=== PATIENT | female | born 1965 | race Caucasian/White ===

== ENCOUNTER 2019-12-10 06:59 | Day surgery (SDC) | payer OTHER ==
[2019-11-25 10:29] VITALS: BMI 31.4
[~2019-12-10 06:59] MED LIST: LACTATED RINGERS 1,000 ML IV SCH; LIDOCAINE 1% 20 ML VIAL (10MG/ML) FOR IV START INTRADERMA PRN
[2019-12-10 07:31] VITALS: RESP 16; TEMP 98.3
[2019-12-10] MEDS ORDERED: PROPOFOL 10 MG/ML 20 ML VIAL IV ONE (07:32)
[2019-12-10] MEDS ORDERED: fentaNYL (PF) 50 MCG/ML 2 ML AMP ONE (07:32)
[2019-12-10] MEDS ORDERED: LIDOCAINE 1% INJ 10MG/ML (20 ML MDV) ONE (07:32)
[2019-12-10] MEDS ORDERED: MIDAZOLAM 2 MG/2 ML VIAL ONE (07:32)
--- NOTE | 2019-12-10 08:52 | P.PCN ---
Date of Procedure: 12/10/19 Description of Procedure: Brief history: Patient is a pleasant 54-year-old female who presents for outpatient EGD and colonoscopy for evaluation of GERD rectal bleed. Patient previously had presented with complaints of painful rectal bleeding in 2017 at which time EGD and colonoscopy were performed with findings of a small hiatal hernia, no ulcers with gastritis noted and colonoscopy significant for diverticulosis no polyps. She had a suspected second episode of ischemic colitis. Procedure performed: Esophagogastroduodenoscopy with biopsy Colonoscopy Preoperative diagnosis: GERD, rectal bleeding Anesthesia: [facility] Procedure: After informed consent was obtained from the patient was brought into the endoscopy unit and IV sedation was administered by anesthesia under continuous monitoring. Initially upper endoscopy was done. The Olympus GF 190 video endoscope was inserted into the mouth and esophagus intubated without any difficulty and was gradually advanced into the stomach and duodenum and carefully examined. The bulb and second part of the duodenum appeared normal, with biopsies taken. The scope was then withdrawn into the stomach adequately insufflated with air and upon careful examination the antrum and body, cardia and fundus appeared normal, Except for some mild scattered erythema in the antrum and body suggestive of mild gastritis with biopsies taken. The scope was then withdrawn into the esophagus. The GE junction was located at 48 cm to the incisors And appeared normal with no evidence of Landrum's esophagus or esophagitis with biopsies taken. A small 1 cm hiatal hernia noted. It appeared regular with no erythema erosions or ulcerations. Rest of the esophagus appeared normal. Patient tolerated the procedure well. At this time the patient continued to remain sedation. Initial digital rectal examination was normal A pediatric video colonoscope was then inserted into the rectum and gradually advanced to the cecum without any difficulty. Careful examination was performed as the scope was gradually being withdrawn. The prep was excellent. The cecum, ascending colon, transverse colon, descending colon, sigmoid colon and rectum appeared normal. A few scattered diverticula noted in the sigmoid colon. The patient had an extremely fixed, tortuous redundant colon with significant looping of the endoscope requiring repositioning of the patient and external pressure. Retroflexion was performed in the rectum and no lesions were noted. Patient tolerated the procedure well. Impression: 1. Mild gastritis antrum and body, biopsied. No evidence of Landrum's esophagus or reflux esophagitis. Biopsies of the GE junction and duodenum. Small 1 cm hiatal hernia. 2. Mild sigmoid diverticulosis. Redundant tortuous colon requiring use of a pediatric endoscope, external pressure and repositioning of the patient. No e vidence of colitis or other abnormalities. Recommendations: Findings of this examination were discussed with the patient as well as her . Okay to resume diet. Okay to resume medications. Would recommend repeat colonoscopy in 5 years for screening purposes.
[2019-12-10 09:10] VITALS: BP 122/78; PULSE 70
== END 2019-12-10 09:40 ==
LOC: ORWHC2ENDO 06:59
PROVIDERS: ATTEND Internal Medicine
DX: K21.9 Gastro-esophageal reflux disease without esophagitis (principal); K44.9 Diaphragmatic hernia without obstruction or gangrene; K29.50 Unspecified chronic gastritis without bleeding; K57.30 Diverticulosis of large intestine without perforation or abscess without bleeding; K62.5 Hemorrhage of anus and rectum; Q43.8 Other specified congenital malformations of intestine; Z87.891 Personal history of nicotine dependence; E78.5 Hyperlipidemia, unspecified; Z79.899 Other long term (current) drug therapy; Z88.2 Allergy status to sulfonamides; Z98.890 Other specified postprocedural states; Z90.710 Acquired absence of both cervix and uterus
CPT/HCPCS: 88305; 45378; 43239; J2250; J2001; J3010; J2704

== ENCOUNTER → 2022-02-13 | Outpatient (CLI) | payer OTHER ==
--- NOTE | 2022-02-13 22:32 | CT ---
EXAMINATION TYPE: CT angio abdomen pelvis DATE OF EXAM: 02/13/2022 INDICATION: COLITIS ISCHEMIC CT DLP: 1525.9 mGy.cm Automated Exposure Control for Dose Reduction was Utilized. TECHNIQUE AND CONTRAST: CT scan of the abdomen and pelvis is performed without and with IV Contrast, patient injected with 10 0ML mL of Isovue 370. MIP and 3-D reconstruction images were generated on an independent workstation and reviewed. COMPARISON: None available FINDINGS: Scattered arterial atherosclerotic calcification. Focal infrarenal abdominal aortic ectasia measuring up to 2.3 cm. Otherwise normal caliber and enhancement of the abdominal aorta and major abdominal an d pelvic arteries without significant stenosis, occlusion, dissection or aneurysm. Accessory right re nal artery is seen arising from the inferior aspect of abdominal aorta and supplying the lower pole o f right kidney. No definite hepatic focal lesion by this CT angiographic study. Unremarkable gallbladder, spleen, villalobos creas, adrenals and kidneys. Unremarkable urinary bladder. Previous hysterectomy. No gross adnexal ma ss. Unremarkable nondistended stomach, duodenum and small bowel. Fecal loading of the colon. Scattere d uncomplicated colonic diverticulosis. No significant colonic wall thickening or signs of colitis. No pathologically enlarged abdominal or pelvic lymph nodes. No sizable ascites. Fat-containing suprau mbilical hernia. A few right basal pulmonary nodules measuring up to 4 mm, requiring no further follo w-up if low risk patient. If high risk patient, optional follow-up CT scan in 12 months can be consid ered. Bilateral L5-S1 facet osteoarthropathy. Degenerative changes of the sacroiliac joints. IMPRESSION: No significant arterial stenosis, occlusion or dissection seen in the abdomen or the pelvis. No signs of acute or chronic colitis. Incidental findings as described above.
== END | disposition home or self-care (01) ==
LOC: RADCTMAIN 15:19
PROVIDERS: ATTEND Internal Medicine Gastroenterology
DX: K55.9 Vascular disorder of intestine, unspecified (principal)
CPT/HCPCS: 74174; Q9967

== ENCOUNTER → 2022-03-28 | Outpatient (CLI) | payer OTHER ==
--- NOTE | 2022-03-28 12:03 | CA ---
Exercise Stress Test Report Name: Carley Gonzales Exam Date: 03/28/2022 10:26 Exam Location: [place] Stress Ht (in): 67 Wt (lb): 201 BSA: 2.03 Ordering Phys: Sky Gonzalez MD Referring Phys: Irene Shaver Technologist: Tricia Aguiar Age: 56 Gender: F : 1965 Procedure CPT: Indications: R07.9 CHEST PAIN ICD-10 Codes: Patient History: CHEST PAIN Medications: LOSTARTAIN, LIPITOR, PRILOSEC, OSPHENA, ZYRTEC, MULTI VITAMIN Meds past 24 hrs: Pretest Chest Pain: STRESS TEST Duarte Protocol Exercise Duration (min:sec): 10:[address] Depressions (mm): Angina Score: Conroy Score: Resting HR (bpm): 88 Peak HR (bpm): 163 Resting BP (mmHg): 137 / 92 Peak BP (mmHg): 195 / 96 MPHR: 164 Target HR: 139 % MPHR: 99 METS: 12.1 Total Dose: Peak Dose: Atropine: Double Product: 53452 BP Response: Stress Termination: TARGET HR REACHED/MAX EXERTION Stress Symptoms: NO SYMPTOMS Stress Summary: ECG ANALYSIS Resting ECG: Normal sinus rhythm normal axis normal intervals Stress ECG: No significant ST segment depression at peak exercise CONCLUSIONS Good exercise tolerance Negative stress test by EKG criteria Dr. Justin Gonzales MD (Electronically Signed) Final Date: 28 Mar 2022 12:02
== END | disposition home or self-care (01) ==
LOC: RADNMMAIN 10:01
PROVIDERS: ATTEND Family Medicine
DX: R07.9 Chest pain, unspecified (principal)
CPT/HCPCS: 93017

== ENCOUNTER → 2022-04-18 | Outpatient (CLI) | payer OTHER ==
--- NOTE | 2022-04-18 12:02 | NM ---
EXAMINATION TYPE: NM thyroid image only DATE OF EXAM: 04/18/2022 COMPARISON: NONE HISTORY: Nontoxic multinodular goiter TECHNIQUE: After the intravenous administration of 9.8 mCi Tc 99m Sodium Pertechnetate. FINDINGS: There is a focal cold defect at the upper pole the right lobe of the thyroid gland. I question cold n odule at the mid to lower pole of the left lobe of the thyroid. IMPRESSION: Suspect cold nodules bilaterally, correlate with ultrasound.
== END | disposition home or self-care (01) ==
LOC: RADNMMAIN 10:44
PROVIDERS: ATTEND Family Medicine
DX: E04.2 Nontoxic multinodular goiter (principal)
CPT/HCPCS: 78013; A9512

== ENCOUNTER → 2022-06-08 | Outpatient (CLI) | payer OTHER ==
[2022-06-08 15:10] LABS: C Reactive Protein <0.30 mg/dL (0.00-0.80); Rheumatoid Factor, Qnt 11 IU/mL (0-15)
[2022-06-08 16:33] LABS: Hepatitis A Antibody IgM Nonreactive (Nonreactive); Hepatitis B Core IgM Nonreactive (Nonreactive); Hepatitis B Surface Antigen Nonreactive (Nonreactive); Hepatitis C IgG Antibody Nonreactive (Nonreactive)
[2022-06-08 20:03] LABS: Anti-Smith Ab Interp NEGATIVE (NEGATIVE); Cyclic Citrull Pep IgG Unit 4.7 U/mL; Cyclic Citrullinated Pep IgG POSITIVE (NEGATIVE); DNA Double-Stranded NEGATIVE (NEGATIVE)
[2022-06-11 16:02] LABS: C-ANCA <1:20 Titer (<1:20)
[2022-06-11 16:19] LABS: APTT 41 Sec(s) (<43); DRVVT 1:1 Mix 49 Sec(s) (<44); DRVVT Confirmation Positive (Negative); Dilute Russell Viper Venom 61 Sec(s) (<44)
== END | disposition home or self-care (01) ==
LOC: LABWHC1 09:50
PROVIDERS: ATTEND Internal Medicine Rheumatology
DX: K55.9 Vascular disorder of intestine, unspecified (principal); R76.8 Other specified abnormal immunological findings in serum; E04.1 Nontoxic single thyroid nodule
CPT/HCPCS: 36415; 80074; 84432; 85613; 85652; 85730; 86038; 86039; 86140; 86200; 86225; 86235; 86255; 86431; 86800

== ENCOUNTER 2022-06-15 08:43 | Day surgery (SDC) | payer OTHER ==
[2022-06-15 09:26] VITALS: RESP 18; TEMP 97.7
[2022-06-15] MEDS ORDERED: ALPRAZolam 0.5 MG TAB PO STA (09:27)
[2022-06-15 12:32] VITALS: PULSE 74
--- NOTE | 2022-06-15 12:51 | US ---
EXAMINATION TYPE: US FNA thyroid first lesion DATE OF EXAM: 06/15/2022 COMPARISON: NONE HISTORY: Thyroid nodule. Maximal barrier technique was utilized. After informed consent, skin overlying the right lobe thyroi d nodule was localized with ultrasound and the overlying skin prepped and draped. Ultrasound was util ized using sterile technique. Lidocaine was used for local anesthesia. Five passes with a 25-gauge n eedle were made into the nodule and aspirated specimen was submitted to cytology. Following the proc edure hemostasis achieved. No immediate complication. The patient discharged in stable condition. IMPRESSION: STATUS POST ULTRASOUND GUIDED FINE NEEDLE ASPIRATION OF THYROID NODULE, PATHOLOGY IS PEND ING. THIS PROCEDURE WAS PERFORMED BY THE UNDERSIGNED.
== END 2022-06-15 11:00 | disposition home or self-care (01) ==
LOC: RADPROMAIN 08:43
PROVIDERS: ATTEND Otolaryngology
DX: E04.1 Nontoxic single thyroid nodule (principal); I10 Essential (primary) hypertension; K21.9 Gastro-esophageal reflux disease without esophagitis; E78.00 Pure hypercholesterolemia, unspecified; E11.9 Type 2 diabetes mellitus without complications; Z87.891 Personal history of nicotine dependence; Z79.899 Other long term (current) drug therapy; Z79.01 Long term (current) use of anticoagulants; Z88.2 Allergy status to sulfonamides; Z90.89 Acquired absence of other organs
CPT/HCPCS: 10005; 88173; 88305

== ENCOUNTER → 2022-09-12 | Outpatient (CLI) | payer OTHER ==
[2022-09-13 12:06] LABS: APTT 43 Sec(s) (<43); Dilute Russell Viper Venom 39 Sec(s) (<44)
== END | disposition home or self-care (01) ==
LOC: LABWHC1 07:37
PROVIDERS: ATTEND Internal Medicine Rheumatology
DX: R76.0 Raised antibody titer (principal)
CPT/HCPCS: 36415; 85613; 85730

== ENCOUNTER → 2022-11-28 | Outpatient (CLI) | payer OTHER ==
--- NOTE | 2022-11-28 14:37 | MR ---
EXAMINATION TYPE: MR brain wo/w con DATE OF EXAM: 11/28/2022 11:33 AM CLINICAL INDICATION:Female, 57 years old with history of R51.9, R42, H53.9; COMPARISON: None TECHNIQUE: Multi planar, multi sequence imaging was performed through the brain including: T1, T2, In version recovery, susceptibility weighted imaging and gradient echo imaging and Diffusion weighted im aging. The patient was then given intravenous contrast and multi planar, T1 fat-saturation images wer e obtained. IV Contrast: 11 cc Gadavist FINDINGS: The hogue-white junctions, ventricular system, basal cisterns appear unremarkable. Diffusion-weighted imaging shows no evidence of restricted diffusion to suggest acute/subacute infarct. Intracranial art erial flow voids are maintained. Midline structures show no abnormality. Scattered areas of periventr icular and deep white matter high T2 signal intensity. The susceptibility weighted images do not reve al any evidence for micro-hemorrhage. After administration of gadolinium, no abnormal enhancement is seen. The bone marrow signal is within normal limits. Paranasal sinuses and mastoid air cells: No significant paranasal sinus disease. Visualized orbits: Orbital contents are intact. IMPRESSION: 1. No evidence of intracranial mass, acute/subacute infarct, or abnormal enhancement. 2. Minimal nonspecific white matter changes, likely related to small vessel ischemic disease
== END | disposition home or self-care (01) ==
LOC: RADMRIMAIN 10:33
PROVIDERS: ATTEND Physician Assistant Medical
DX: G93.89 Other specified disorders of brain (principal); R51.9 Headache, unspecified; R42 Dizziness and giddiness; H53.9 Unspecified visual disturbance
CPT/HCPCS: 70553; A9585

== ENCOUNTER → 2023-01-29 | Outpatient (CLI) | payer OTHER ==
--- NOTE | 2023-01-29 15:14 | P.CNPUL ---
History of Present Illness Consult date: 01/29/23 Chief complaint: Chronic hypersomnia History of present illness: This is a 57-year-old female patient was presenting with concerns of sleep apnea. The patient has been complaining of loud snoring. She has been told to quit breathing in the middle of the night as reported by her . She is currently working at [employer]. She is in [employer] technology. She is working at the medical [employer]. His functionality is preserved. Nevertheless, she gets tired and fatigue and sleepiness during the day and she wakes up in the morning quite non-refreshed. The patient goes to bed around 10 PM, wakes up 6 AM in the morning and on weekends she sleeps till 9 AM. She seems to be averaging around 7-8 hours of sleep. Her weight is up by around 25 pounds over the past 10 years. She does not have any vivid dreams. No naps during the day. She does not fall asleep while driving. Her current Milroy score is at 7. No sleep paralysis. No hallucinations. No cataplexy. She wakes up with a dry mouth in the morning. No episodes of choking or gasping for air in the middle of the night. No nocturia. No palpitations. No heartburn. Review of Systems Constitutional: Reports daytime sleepiness, Reports fatigue, Reports weight gain Eyes: denies as per HPI, denies blurred vision, denies bulging eye, denies decreased vision, denies diplopia, denies discharge, denies dry eye, denies irritation, denies itching, denies pain, denies photophobia, denies loss of peripheral vision, denies loss of vision, denies tunnel vision/blind spots Ears: deny: decreased hearing, ear discharge, earache, tinnitus Ears, nose, mouth and throat: Reports as per HPI Breasts: absent: as per HPI, change in shape, gynecomastia, masses, nipple discharge, pain, skin changes, swelling Cardiovascular: Reports as per HPI Respiratory: Reports snoring Gastrointestinal: Reports as per HPI Genitourinary: Reports as per HPI Menstruation: Reports as per HPI Musculoskeletal: Reports as per HPI Musculoskeletal: absent: ankle pain, ankle stiffness, ankle swelling Integumentary: Reports as per HPI Neurological: Reports as per HPI Psychiatric: Reports as per HPI Endocrine: Reports as per HPI Hematologic/Lymphatic: Reports as per HPI Allergic/Immunologic: Reports as per HPI Past Medical History Past Medical History: GERD/Reflux, Hyperlipidemia Additional Past Medical History / Comment(s): hx of ischemic colitis, blood clotting disorder, hypertension, thyroid nodule, hyperlipidemia, obesity History of Any Multi-Drug Resistant Organisms: None Reported Past Surgical History: Bladder Surgery, Breast Surgery, Hysterectomy, Tonsillectomy Additional Past Surgical History / Comment(s): recto/cystocele repair. colonoscopy. lt breast lumpectomy-benign Past Anesthesia/Blood Transfusion Reactions: No Reported Reaction Past Psychological History: No Psychological Hx Reported Smoking Status: Former smoker Past Alcohol Use History: None Reported Additional Past Alcohol Use History / Comment(s): quit smoking about 2012 Past Drug Use History: None Reported - Past Family History Mother History Unknown: Yes Additional Family Medical History / Comment(s): adopted-family hx unknown Medications and Allergies Home Medications Medication Instructions Recorded Confirmed Type Atorvastatin [Lipitor] 10 mg PO HS 11/25/19 06/15/22 History Cetirizine HCl [Zyrtec] 10 mg PO DAILY 11/25/19 06/15/22 History Ergocalciferol [Vitamin D2] 50,000 unit PO SA 11/25/19 06/15/22 History Multivitamins, Thera [Multivitamin 1 tab PO DAILY 11/25/19 06/15/22 History (formulary)] Omeprazole [PriLOSEC] 20 mg PO AC-BRKFST 11/25/19 06/15/22 History Ospemifene [Osphena] 60 mg PO DAILY 11/25/19 06/15/22 History Acetaminophen/Diphenhydramine 1 tab PO HS 06/07/22 06/15/22 History [Tylenol PM 500-25mg] Fluticasone Nasal [place] [Flonase 2 spray EA NOSTRIL DAILY PRN 06/07/22 06/15/22 History Nasal [place]] Losartan Potassium [Cozaar] 25 mg PO DAILY 06/07/22 06/15/22 History Rivaroxaban [Xarelto] 10 mg PO DAILY 06/07/22 06/07/22 History Allergies Allergy/AdvReac Type Severity Reaction Status Date / Time sulfamethoxazole Allergy Rash/Hives Verified 06/15/22 09:40 [From Bactrim] trimethoprim [From Bactrim] Allergy Rash/Hives Verified 06/15/22 09:40 Physical Exam BP is 131/80, pulse is 76, respirations 18, temperature is 97.9, pulse ox is 95% on room air oxygen. Height is 5 feet and 6 inches and weight is 227 pounds with a body mass index of 35. The size of the neck is 18 inches. The patient appeared well nourished and normally developed. Vital signs as documented. Head exam is unremarkable. The patient has significant crowding of the posterior oropharynx and the patient is a Mallampati class IV. No scleral icterus or corneal arcus noted. Neck is without jugular venous distension, thyromegaly, or carotid bruits. Carotid upstrokes are brisk bilaterally. Lungs are clear to auscultation and percussion. Cardiac exam reveals the PMI to be normally sized and situated. Rhythm is regular. First and second heart sounds normal. No murmurs, rubs or gallops. Abdominal exam reveals normal bowel sounds, no masses, no organomegaly and no aortic enlargement. Extremities are nonedematous and both femoral and pedal pulses are normal.Examination of the skin revealed no evidence of significant rashes, suspicious appearing nevi or other concerning lesions.Neurologically, the patient is awake and alert and the patient does not have any focal neurological deficit. Cranial nerves are essentially intact. Assessment and Plan Plan: Chronic hypersomnia, Milroy score of 7 with increased likelihood of obstructive sleep apnea Loud snoring Obesity with a body mass index of 35 History of ischemic colitis maintain on long-term and coagulation with Xarelto Hypertension Hyperlipidemia History of thyroid nodules Plan High likelihood for obstructive sleep apnea. We'll proceed with screening polysomnography Encourage weight loss Optimize sleep hygiene measures Maintain regular sleep schedule We'll continue to follow make further recommendations based on the results of the sleep.
== END ==
LOC: SLEEP 14:35
PROVIDERS: ATTEND Internal Medicine Critical Care Medicine
DX: G47.33 Obstructive sleep apnea (adult) (pediatric) (principal); E66.9 Obesity, unspecified; Z68.35 Body mass index [BMI] 35.0-35.9, adult; I10 Essential (primary) hypertension; E78.5 Hyperlipidemia, unspecified; Z88.2 Allergy status to sulfonamides; K21.9 Gastro-esophageal reflux disease without esophagitis; Z87.891 Personal history of nicotine dependence; K55.9 Vascular disorder of intestine, unspecified; Z79.01 Long term (current) use of anticoagulants; E04.1 Nontoxic single thyroid nodule
CPT/HCPCS: 99211

== ENCOUNTER → 2023-04-09 | Outpatient (CLI) | payer OTHER ==
--- NOTE | 2023-04-09 17:12 | P.PN ---
Progress Note - Text Progress Note Date: 04/09/23 On today's evaluation of 04/09/2023, the patient is coming in to discuss the results of the sleep study. As mentioned earlier, the patient presented to me for sleep apnea evaluation. A screening polysomnography was completed. The patient demonstrated excessive fragmentation and the same time there was mild obstructive sleep apnea with an AHI of 7.5. The patient had REM-related obstructive hypopneas. Nevertheless, the severity was not enough to explain her chronic fatigue and tiredness and sleepiness. We decided not to proceed with CPAP therapy at this point in time, we'll going to give the patient some conservative measures of improving her sleep hygiene measures and weight loss. BP is 133/89 with a pulse of 72 and a respiration of 12 and a temperature 97.2 The patient appeared well nourished and normally developed. Vital signs as documented. Head exam is unremarkable. No scleral icterus or corneal arcus noted. Neck is without jugular venous distension, thyromegaly, or carotid bruits. Carotid upstrokes are brisk bilaterally. Lungs are clear to auscultation and percussion. Cardiac exam reveals the PMI to be normally sized and situated. Rhythm is regular. First and second heart sounds normal. No murmurs, rubs or gallops. Abdominal exam reveals normal bowel sounds, no masses, no organomegaly and no aortic enlargement. Extremities are nonedematous and both femoral and pedal pulses are normal. Assessment Obstructive sleep apnea, REM specific, mainly form of obstructive hypopneas, with an overall apnea-hypopnea index of 7.5 Chronic fatigue and hypersomnia, out of proportion to the severity of sleep apnea Obesity Hypertension Hyperlipidemia History of thyroid nodules Plan Proceed with conservative measures of weight loss. Intermittently sleep hygiene measures. Repeat a home sleep study in a year temp evaluate the progression of sleep apnea. We'll continue CPAP therapy the patient remains symptomatic and orders progression of her disease severity. The patient will see back in a year's time in follow-up. We'll continue to follow.
== END ==
LOC: SLEEP 15:53
PROVIDERS: ATTEND Internal Medicine Critical Care Medicine
DX: G47.33 Obstructive sleep apnea (adult) (pediatric) (principal); E66.9 Obesity, unspecified; I10 Essential (primary) hypertension; E78.5 Hyperlipidemia, unspecified; Z99.89 Dependence on other enabling machines and devices; E04.1 Nontoxic single thyroid nodule; Z88.2 Allergy status to sulfonamides; Z87.891 Personal history of nicotine dependence
CPT/HCPCS: 99212

== ENCOUNTER → 2023-09-12 | Outpatient (CLI) | payer OTHER ==
--- NOTE | 2023-09-12 08:56 | PE ---
EXAMINATION TYPE: PET CT fusion skull to thigh DATE OF EXAM: 09/12/2023 CLINICAL INDICATION:Female, 58 years old with history of R91.1 SPN R91.8 ABN FINDING LUNG FIELD; TECHNIQUE: Following the intravenous administration of 1.9 mCi of F-18 FDG, whole body images are p erformed from the skull base to the midthigh. Images are reviewed on the computer in the coronal, ax ial, and sagittal planes. Reconstructed rotating images are created on independent workstation and r eviewed on the computer. A non-contrast CT is performed in conjunction with the PET scan. Glucose l evel 173 mg/dL CT DLP: 935 mGycm, Automated exposure control for dose reduction was used. COMPARISON: CT 08/01/2023., PET/CT None, FINDINGS: Mediastinal SUV mean is 2.2. Hepatic parenchyma SUV mean is 2.9. SKULL BASE AND NECK: FDG avid thyroid nodule on the right measuring Max SUV 11.3. CHEST, MEDIASTINUM, AND HILAR REGION: Left anterior medial pulmonary nodule measures similarly at 9 x 7 mm with max SUV 0.8. ABDOMEN AND PELVIS: No suspicious radiotracer activity. MUSCULOSKELETAL STRUCTURES: No suspicious radiotracer activity. OTHER CT: Atherosclerosis of the carotid bifurcations, coronary arteries and aorta. Hepatic steatosis . Fat-containing umbilical hernia. Scattered colonic diverticula. IMPRESSION: 1. Left upper lung anterior medial pulmonary nodule with FDG activity below back on levels. Consider short-term follow-up with CT chest in 3 months to ensure stability. Bronchoalveolar carcinoma can alvarez ve low FDG activity. Findings on this exam and one month prior favor granulomatous change. 2. Right thyroid nodule with increased metabolic activity dedicated thyroid ultrasound recommended f or further evaluation.
== END | disposition home or self-care (01) ==
LOC: RADPETMAIN 06:31
PROVIDERS: ATTEND Family Medicine
DX: R91.8 Other nonspecific abnormal finding of lung field (principal); E04.1 Nontoxic single thyroid nodule
CPT/HCPCS: 78815; A9552

== ENCOUNTER 2023-10-28 11:29 | Emergency (ER) | payer OTHER ==
--- NOTE | 2023-10-28 11:33 | ED ---
General Adult HPI - General Source: patient, RN notes reviewed Mode of arrival: ambulatory Limitations: no limitations <Yeison Henderson - Last Filed: 10/28/23 11:32> <Mustapha Thurston - Last Filed: 10/28/23 14:56> - General Stated complaint: Cough Time Seen by Provider: 10/28/23 11:32 - History of Present Illness Initial comments: 58-year-old female presents emergency Department chief complaint of cough, congestion. Patient states she's been sick for 2 weeks. Patient states that she had a negative COVID-19 last week. Patient states she has productive cough. Patient states that she is a former smoker quit 10 years ago. Patient denies any chest pain. Patient states she just doesn't feel well. (Yeison Henderson) This is a 58-year-old female presents emergency Department with chief complaint of two-week history of cough and congestion. Patient states she has been on antibiotics has multiple steroid packs. Patient states the congestion and cough continue. Patient states she hasn't had a fever chills and quite a while. Patient states she's been negative for COVID. Patient denies any chest pain or palpitations. Patient states she does have some right lateral rib pain when she coughs. Patient states she is not really short of breath but when she coughs she becomes short of breath. Patient states she's been sleeping in a recliner. Patient denies any swelling to legs or calf tenderness (Mustapha Thurston) - Related Data Home Medications Medication Instructions Recorded Confirmed Atorvastatin [Lipitor] 10 mg PO HS 11/25/19 10/28/23 Multivitamins, Thera [Multivitamin 1 tab PO DAILY 11/25/19 10/28/23 (formulary)] Omeprazole [PriLOSEC] 20 mg PO DAILY 11/25/19 10/28/23 Ospemifene [Osphena] 60 mg PO DAILY 11/25/19 10/28/23 Rivaroxaban [Xarelto] 10 mg PO HS 06/07/22 10/28/23 Benzonatate [Tessalon Perle] 200 mg PO Q8H PRN 10/28/23 10/28/23 Ergocalciferol (Vitamin D2) 1,250 mcg PO SA 10/28/23 10/28/23 [Drisdol (50,000 Iu)] Metoprolol Succinate [Toprol XL] 50 mg PO DAILY 10/28/23 10/28/23 buPROPion XL [Wellbutrin XL] 300 mg PO DAILY 10/28/23 10/28/23 metFORMIN HCL [Glucophage] 1,000 mg PO BID 10/28/23 10/28/23 Previous Rx's Medication Instructions Recorded Albuterol Inhaler [Ventolin Hfa 2 puff INHALATION RT-QID #18 gm 10/28/23 Inhaler] Allergies Allergy/AdvReac Type Severity Reaction Status Date / Time sulfamethoxazole Allergy Rash/Hives Verified 10/28/23 14:31 [From Bactrim] trimethoprim [From Bactrim] Allergy Rash/Hives Verified 10/28/23 14:31 Review of Systems ROS Other: All systems not noted in ROS Statement are negative. <Yeison Henderson - Last Filed: 10/28/23 11:32> ROS Other: All systems not noted in ROS Statement are negative. <Mustapha Thurston - Last Filed: 10/28/23 14:56> ROS Statement: Those systems with pertinent positive or pertinent negative responses have been documented in the HPI. Past Medical History Past Medical History: GERD/Reflux, Hyperlipidemia Additional Past Medical History / Comment(s): hx of ischemic colitis, blood clotting disorder, hypertension, thyroid nodule, hyperlipidemia, obesity History of Any Multi-Drug Resistant Organisms: None Reported Past Surgical History: Bladder Surgery, Breast Surgery, Hysterectomy, Tonsillectomy Additional Past Surgical History / Comment(s): recto/cystocele repair. colonoscopy. lt breast lumpectomy-benign Past Anesthesia/Blood Transfusion Reactions: No Reported Reaction Past Psychological History: No Psychological Hx Reported Smoking Status: Former smoker Past Alcohol Use History: None Reported Additional Past Alcohol Use History / Comment(s): quit smoking about 2012 Past Drug Use History: None Reported - Past Family History Mother History Unknown: Yes Additional Family Medical History / Comment(s): adopted-family hx unknown <Yeison Henderson - Last Filed: 10/28/23 11:32> General Exam <Yeison Henderson - Last Filed: 10/28/23 11:32> <Mustapha Thurston - Last Filed: 10/28/23 14:56> - General Exam Comments Initial Comments: Visual Physical Exam Vital signs reviewed General: Well-appearing, nontoxic, no acute distress. Head: Normocephalic, atraumatic Eyes: PERRLA, EOMI ENT: Airway patent Chest: Nonlabored breathing Skin: No visual rash, normal skin tone Neuro: Alert and oriented 3 Musculoskeletal: No gross abnormalities (Yeison Henderson) GENERAL: Patient is well-developed and well-nourished. Patient is nontoxic and well- hydrated and is in mild distress. ENT: Neck is soft and supple. No significant lymphadenopathy is noted. Oropharynx is clear. Moist mucous membranes. Neck has full range of motion without eliciting any pain. EYES: The sclera were anicteric and conjunctiva were pink and moist. Extraocular movements were intact and pupils were equal round and reactive to light. Eye lids were unremarkable. PULMONARY: Unlabored respirations. Good breath sounds bilaterally. No audible rales rhonchi or wheezing was noted. CARDIOVASCULAR: There is a regular rate and rhythm without any murmurs gallops or rubs. ABDOMEN: Soft and nontender with normal bowel sounds. SKIN: Skin is clear with no lesions or rashes and otherwise unremarkable. NEUROLOGIC: Patient is alert and oriented x3. Cranial nerves II through XII are grossly intact. Motor and sensory are also intact. Normal speech, volume and content. Symmetrical smile. MUSCULOSKELETAL: Normal extremities with adequate strength and full range of motion. LYMPHATICS: No significant lymphadenopathy is noted PSYCHIATRIC: Normal psychiatric evaluation. (Mustapha Thurston) Course Vital Signs 10/28/23 10/28/23 10/28/23 11:39 13:21 13:28 Temperature 98.4 F Pulse Rate 84 84 82 Respiratory 22 Rate Blood Pressure 137/89 O2 Sat by Pulse 95 Oximetry Medical Decision Making <Yeison Henderson - Last Filed: 10/28/23 11:32> - Lab Data Result diagrams: 10/28/23 13:30 10/28/23 13:30 <Mustapha Thurston - Last Filed: 10/28/23 14:56> - Medical Decision Making I completed the quick note portion of this chart signed Yeison Henderson PA-C (Yeison Henderson) Was pt. sent in by a medical professional or institution (MALLORY Ahn, ELECTRONIC DEVICE MONITOR, urgent care, hospital, or jail...) When possible be specific @ -No Did you speak to anyone other than the patient for history (EMS, parent, family, police, friend...)? What history was obtained from this source @ -No Did you review nursing and triage notes (agree or disagree)? Why? @ -I reviewed and agree with nursing and triage notes Were old charts reviewed (outside hosp., previous admission, EMS record, old EKG, old radiological studies, urgent care reports/EKG's, jail records)? Report findings @ -No old charts were reviewed Differential Diagnosis (chest pain, altered mental status, abdominal pain women, abdominal pain men, vaginal bleeding, weakness, fever, dyspnea, syncope, headache, dizziness, GI bleed, back pain, seizure, CVA, palpatations, mental health, musculoskeletal)? @ -Differential Dyspnea: Coronary syndrome, arrhythmia, tamponade, asthma, COPD, pulmonary embolism, pneumonia, pneumothorax, pulmonary effusion, anaphylaxis, diabetic ketoacidosis, flailed chest, pulmonary contusion, diaphragmatic rupture, anemia, neuromuscular, this is not meant to be an all-inclusive list. EKG interpreted by me (3pts min.). @ -As above X-rays interpreted by me (1pt min.). @ -Shows no acute abnormality CT interpreted by me (1pt min.). @ -None done U/S interpreted by me (1pt. min.). @ -None done What testing was considered but not performed or refused? (CT, X-rays, U/S, labs)? Why? @ -None What meds were considered but not given or refused? Why? @ -None Did you discuss the management of the patient with other professionals (professionals i.e. , PA, ELECTRONIC DEVICE MONITOR, lab, RT, psych nurse, social services manager, sound ranging crewmember, teacher, staff electronic warfare officer, rn case manager hospice)? Give summary @ -No Was smoking cessation discussed for >3mins.? @ -No Was critical care preformed (if so, how long)? @ -No Were there social determinants of health that impacted care today? How? (Bal elessness, low income, unemployed, alcoholism, drug addiction, transportation, low edu. Level, literacy, decrease access to med. care, fpc, rehab)? @ -No Was there de-escalation of care discussed even if they declined (Discuss DNR or withdrawal of care, Hospice)? DNR status @ -No What co-morbidities impacted this encounter? (DM, HTN, Smoking, COPD, CAD, Cancer, CVA, ARF, Chemo, Hep., AIDS, mental health diagnosis, sleep apnea, morbid obesity)? @ -None Was patient admitted / discharged? Hospital course, mention meds given and route, prescriptions, significant lab abnormalities, going to OR and other pertinent info. @ -Patient got a breathing treatment in the emergency department stating it did decrease her coughing and she felt somewhat better. Patient stated that she stopped her last steroid dose yesterday. Undiagnosed new problem with uncertain prognosis? @ -No Drug Therapy requiring intensive monitoring for toxicity (Heparin, Nitro, Insulin, Cardizem)? @ -No Were any procedures done? @ -No Diagnosis/symptom? @ -Upper respiratory infection Acute, or Chronic, or Acute on Chronic? @ -Acute Uncomplicated (without systemic symptoms) or Complicated (systemic symptoms)? @ -Uncomplicated Side effects of treatment? @ -No Exacerbation, Progression, or Severe Exacerbation? @ -No Poses a threat to life or bodily function? How? (Chest pain, [place], [place], pneumonia, PE, COPD, DKA, ARF, appy, cholecystitis, CVA, Diverticulitis, Homicidal, Suicidal, threat to staff... and all critical care pts) @ -No (Mustapha Thurston) - Lab Data Lab Results 10/28/23 10/28/23 10/28/23 Range/Units 11:42 13:30 13:30 WBC 12.8 H (3.8-10.6) k/uL RBC 4.57 (3.80-5.40) m/uL Hgb 14.4 (11.4-16.0) gm/dL Hct 42.6 (34.0-46.0) % MCV 93.3 (80.0-100.0) fL MCH 31.4 (25.0-35.0) pg MCHC 33.7 (31.0-37.0) g/dL RDW 12.4 (11.5-15.5) % Plt Count 322 (150-450) k/uL MPV 7.4 Neutrophils % 68 % Lymphocytes % 24 % Monocytes % 5 % Eosinophils % 1 % Basophils % 1 % Neutrophils # 8.7 H (1.3-7.7) k/uL Lymphocytes # 3.1 (1.0-4.8) k/uL Monocytes # 0.7 (0-1.0) k/uL Eosinophils # 0.1 (0-0.7) k/uL Basophils # 0.1 (0-0.2) k/uL Sodium 131 L (137-145) mmol/L Potassium 4.8 (3.5-5.1) mmol/L Chloride 89 L (98-107) mmol/L Carbon Dioxide 28 (22-30) mmol/L Anion Gap 14 mmol/L BUN 15 (7-17) mg/dL Creatinine 0.58 (0.52-1.04) mg/dL Est GFR (CKD-EPI)AfAm >90 (>60 ml/min/1.73 sqM) Est GFR (CKD-EPI)NonAf >90 (>60 ml/min/1.73 sqM) Glucose 122 H (74-99) mg/dL Calcium 9.3 (8.4-10.2) mg/dL Total Bilirubin 0.7 (0.2-1.3) mg/dL AST 37 H (14-36) U/L ALT 46 H (4-34) U/L Alkaline Phosphatase 114 (38-126) U/L Total Protein 7.2 (6.3-8.2) g/dL Albumin 4.3 (3.5-5.0) g/dL Influenza Type A (PCR) Not Detected (Not Detectd) Influenza Type B (PCR) Not Detected (Not Detectd) RSV (PCR) Not Detected (Not Detectd) SARS-CoV-2 (PCR) Not Detected (Not Detectd) Disposition <Yeison Henderson - Last Filed: 10/28/23 11:32> Is patient prescribed a controlled substance at d/c from ED?: No Time of Disposition: 14:55 <Mustapha Thurston - Last Filed: 10/28/23 14:56> Clinical Impression: Upper respiratory tract infection Disposition: HOME SELF-CARE Instructions (If sedation given, give patient instructions): Upper Respiratory Infection (ED) Prescriptions: Albuterol Inhaler [Ventolin Hfa Inhaler] 2 puff INHALATION RT-QID #18 gm Referrals: Honey Smith DO [Primary Care Provider] - 1-2 days
[2023-10-28 11:53] VITALS: TEMP 98.4
--- NOTE | 2023-10-28 12:03 | XR ---
EXAMINATION TYPE: XR chest 2V DATE OF EXAM: 10/28/2023 COMPARISON: 09/12/2023 TECHNIQUE: PA and lateral views submitted. HISTORY: Shortness of breath FINDINGS: The lungs are clear and there is no pneumothorax, pleural effusion, or focal pneumonia. Heart size normal and no overt failure. Osseous structures demonstrate hypertrophic and degenerative changes of the spine. Pulmonary nodule noted by previous CT scan not as well seen by standard x-ray. IMPRESSION: 1. No acute process.
[2023-10-28] MEDS ORDERED: IPRATROPIUM-ALBUTEROL 3 ML NEB INHALATION STA (13:11)
[2023-10-28 13:40] LABS: Basophils # (A) 0.1 k/uL (0-0.2); Basophils % (A) 1 %; Eosinophils # (A) 0.1 k/uL (0-0.7); Eosinophils % (A) 1 %; HCT 42.6 % (34.0-46.0); HGB 14.4 gm/dL (11.4-16.0); Lymphocytes # (A) 3.1 k/uL (1.0-4.8); Lymphocytes % (A) 24 %; MCH 31.4 pg (25.0-35.0); MCHC 33.7 g/dL (31.0-37.0); MCV 93.3 fL (80.0-100.0); Mean Platelet Volume 7.4; Monocytes # (A) 0.7 k/uL (0-1.0); Monocytes % (A) 5 %; Neutrophils # (A) 8.7 k/uL (1.3-7.7); Neutrophils % (A) 68 %; Platelet Count 322 k/uL (150-450); RBC 4.57 m/uL (3.80-5.40); RDW 12.4 % (11.5-15.5); WBC 12.8 k/uL (3.8-10.6)
[2023-10-28 14:00] LABS: ALT 46 U/L (4-34); AST 37 U/L (14-36); African American GFR (CKD) >90 (>60 ml/min/1.73 sqM); Albumin 4.3 g/dL (3.5-5.0); Alkaline Phosphatase 114 U/L (38-126); Anion Gap 14 mmol/L; Blood Urea Nitrogen 15 mg/dL (7-17); Calcium 9.3 mg/dL (8.4-10.2); Carbon Dioxide 28 mmol/L (22-30); Chloride 89 mmol/L (98-107); Glucose 122 mg/dL (74-99); Non-African American GFR(CKD) >90 (>60 ml/min/1.73 sqM); Potassium 4.8 mmol/L (3.5-5.1); Sodium 131 mmol/L (137-145); Total Bilirubin 0.7 mg/dL (0.2-1.3); Total Protein 7.2 g/dL (6.3-8.2)
[2023-10-28 15:17] VITALS: BP 143/84; PULSE 83; RESP 20
== END 2023-10-28 15:12 | disposition home or self-care (01) ==
LOC: EC 11:29
DX: J06.9 Acute upper respiratory infection, unspecified (principal); I10 Essential (primary) hypertension; E78.5 Hyperlipidemia, unspecified; K21.9 Gastro-esophageal reflux disease without esophagitis; E66.9 Obesity, unspecified; Z20.822 Contact with and (suspected) exposure to COVID-19; Z68.37 Body mass index [BMI] 37.0-37.9, adult; Z79.899 Other long term (current) drug therapy; Z88.1 Allergy status to other antibiotic agents; Z88.2 Allergy status to sulfonamides; Z87.891 Personal history of nicotine dependence
CPT/HCPCS: 36415; 71046; 80053; 85025; 87636; 94640; 99283